=== PATIENT | female | born 1965 | race Caucasian/White ===

== ENCOUNTER → 2017-01-17 | Outpatient (CLI) | payer MEDICAID | LOC: CIMAGING 14:27 | DX: Z12.31 Encounter for screening mammogram for malignant neoplasm of breast (principal) | CPT/HCPCS: G0202 ==

== ENCOUNTER → 2017-02-04 | Outpatient (CLI) | payer MEDICAID | LOC: CIMAGING 13:10 | PROVIDERS: ATTEND Family Medicine | DX: Z12.39 Encounter for other screening for malignant neoplasm of breast (principal); R92.8 Other abnormal and inconclusive findings on diagnostic imaging of breast | CPT/HCPCS: G0206 ==

== ENCOUNTER → 2017-05-29 | Outpatient (CLI) | payer MEDICAID | LOC: CIMAGING 12:53 | PROVIDERS: ATTEND Family Medicine | DX: I51.7 Cardiomegaly (principal); R91.8 Other nonspecific abnormal finding of lung field | CPT/HCPCS: 71020-PO ==

== ENCOUNTER 2018-06-30 08:21 | Observation (INO) | payer SELFPAY ==
[2018-06-30] MEDS ORDERED: IPRATROPIUM/ALBUTEROL 3 ML DEYVIAL IH ONE (08:46)
[2018-06-30] MEDS ORDERED: NS 1,000 ML IV ONE (08:48)
--- NOTE | 2018-06-30 08:54 | EDPHY ---
H & P Stated Complaint: URI, low back pain and incontinence x 3 weeks Time Seen by Provider: 06/30/18 08:51 HPI/ROS: CHIEF COMPLAINT: Called, left flank pain and incontinent HISTORY OF PRESENT ILLNESS: The patient is a 52-year-old obese female who comes to the emergency department complaining of an upper respiratory tract infection for the last 3 weeks as well as pain in her left flank and stress incontinence. No weakness in her legs. No numbness. No middle low back pain. She denies injuries. She states that she got a cold from her daughter's boyfriend. She has been coughing and felt short of breath. Here at triage she is hypoxic. She also complains that around the same time she started having an ache in her left CVA region that she assumed was a pulled muscle from doing laundry. She states that she has had that before and usually gets better with heat packs but this is not. She also has been complaining of stress incontinence with coughing or sitting or rolling over. She states that this began around the same time 3 weeks ago but has happened before when she has had colds. She has had a subjective fever at home. No GI symptoms. She has not had any dysuria. She denies history of asthma or COPD but states that she does have wheezing with colds. Severity: Moderate Modifying factors: None REVIEW OF SYSTEMS: Constitutional: See HPI EENTM: denies: blurred vision, double vision, nose congestion Respiratory: See HPI Cardiac: denies: chest pain, irregular heart rate, lightheadedness, palpitations Gastrointestinal/Abdominal: denies: abdominal pain, diarrhea, nausea, vomiting, blood streaked stools Genitourinary: See HPI Musculoskeletal: denies: joint pain, muscle pain Skin: denies: lesions, rash, jaundice, bruising Neurological: denies: headache, numbness, paresthesia, tingling, dizziness, weakness Hematologic/Lymphatic: denies: blood clots, easy bleeding, easy bruising Immunologic/allergic: denies: HIV/AIDS, transplant 10 systems reviewed and negative except as noted EXAM: GENERAL: Well-appearing, well-nourished and in no acute distress. HEAD: Atraumatic, normocephalic. EYES: Pupils equal round and reactive to light, extraocular movements intact, sclera anicteric, conjunctiva are normal. ENT: TMs normal, nares patent, oropharynx clear without exudates. Moist mucous membranes. NECK: Normal range of motion, supple without lymphadenopathy or JVD. LUNGS: Mild diffuse wheezing HEART: Regular rate and rhythm without murmurs, rubs or gallops. ABDOMEN: Soft, nontender, normoactive bowel sounds. No guarding, no rebound. No masses appreciated. BACK: Mild left CVA tenderness, no spinal tenderness, step-offs or deformities EXTREMITIES: Normal range of motion, 1+ pitting edema. No clubbing or cyanosis. NEUROLOGICAL: Cranial nerves II through XII grossly intact. Normal speech, normal gait. 5/5 strength, normal movement in all extremities, normal sensation , normal reflexes PSYCH: Normal mood, normal affect. SKIN: Warm, dry, normal turgor, no visible rashes or lesions. Source: Patient Exam Limitations: No limitations - Personal History Current Tetanus Diphtheria and Acellular Pertussis (TDAP): Yes - Medical/Surgical History Hx Asthma: No Hx Chronic Respiratory Disease: No Hx Diabetes: No Hx Cardiac Disease: No Hx Renal Disease: No Hx Cirrhosis: No Hx Alcoholism: No Hx HIV/AIDS: No Hx Splenectomy or Spleen Trauma: No Other PMH: High cholesterol. RA. osteoporosis in knees, carpal tunnel bilat. kidney stones - Family History Significant Family History: No pertinent family hx - Social History Smoking Status: Former smoker Alcohol Use: Sober Drug Use: None Constitutional: Initial Vital Signs Temperature (C) 36.6 C 06/30/18 08:24 Heart Rate 97 06/30/18 08:24 Respiratory Rate 22 H 06/30/18 08:24 Blood Pressure 179/81 H 06/30/18 08:24 O2 Sat (%) 80 L 06/30/18 08:24 O2 Delivery Mode Nasal Cannula O2 (L/minute) 3 Allergies/Adverse Reactions: No Known Allergies Allergy (Verified 06/30/18 08:24) Home Medications: Medication Instructions Recorded Oxybutynin 11/02/13 Oxycodone HCl/Acetaminophen 1 - 2 tab PO Q6 PRN #15 tablet 11/02/13 [Oxycodone-Acetaminophen 5-325] traZODONE 11/02/13 Medical Decision Making - Diagnostics EKG Interpretation: An EKG obtained and was read and documented in trace view. Please see trace view for full reading and report. Sinus rhythm, no acute ischemic changes. Imaging Results: Imaging Impressions Chest X-Ray 06/30/18 08:46 Impression: Probable mild CHF/pulmonary edema, minimally increased since May 29. Abdomen/Pelvis Ultrasound 06/30/18 08:49 Impression: 1. No hydronephrosis. 2. Bladder is empty. 3. Cholelithiasis with borderline gallbladder wall thickening, which may represent cholecystitis. Please correlate with laboratory values and consider ultrasound abdomen if clinically indicated. Findings and recommendations discussed with Emergency Department physician, Dr. Beny Parra at 0931 hours on June 30, 2018. Final report concurs with initial preliminary interpretation. Imaging: Discussed imaging studies w/ presto log operator Radiologist ED Course/Re-evaluation: 10:55 a.m. I return to the patient's room multiple times for re-examination. She is difficult to pin down. Her renal ultrasound and urinalysis are unremarkable. I do not have a good explanation for left flank pain. Her chest x-rays consistent with pulmonary edema. She denies any history of CHF or cardiac disease. Her BNP is not very elevated and her troponin and EKG are normal. She does report some orthopnea. Much of her symptomatology is consistent with pneumonia. She says she had a fever at home and has been coughing and is hypoxic. She however on x-ray appears more to be consistent with pulmonary edema, she has a normal white count and lactate and is afebrile here. At this point I spoke with the hospitalist service and will admit for hypoxia and pulmonary edema. I will treat with Lasix for now and will continue the workup inpatient basis. 11:55 a.m. the patient's has arrived. They are refusing EMS transport because of cost concerns. We have not yet given the patient Lasix and will hold this until after her transport. Will give them an oxygen bottle to take with them. Differential Diagnosis: Partial list of the Differential diagnosis considered include but were not limited to; bronchitis, pneumonia, pulmonary edema, CHF, urinary tract infection, muscle strain kidney stone and although unlikely based on the history and physical exam, I also considered aneurysm, dissection, diverticulitis. - Data Points Laboratory Results: Laboratory Results 06/30/18 08:50 06/30/18 08:50 06/30/18 06/30/18 06/30/18 09:52 09:08 08:50 WBC RBC Hgb Hct MCV MCH MCHC RDW Plt Count MPV Neut % (Auto) Lymph % (Auto) [place] % (Auto) Eos % (Auto) Baso % (Auto) Nucleat RBC Rel Count Absolute Neuts (auto) Absolute Lymphs (auto) Absolute Monos (auto) Absolute Eos (auto) Absolute Basos (auto) Absolute Nucleated RBC Immature Gran % Immature Gran # PT INR APTT Sodium 140 mEq/L mEq/L (135-145) Potassium 4.0 mEq/L mEq/L (3.3-5.0) Chloride 101 mEq/L mEq/L (97-110) Carbon Dioxide 29 mEq/l mEq/l (22-31) Anion Gap 10 mEq/L mEq/L (6-14) BUN 11 mg/dL mg/dL (7-23) Creatinine 0.6 mg/dL mg/dL (0.6-1.0) Estimated GFR > 60 Glucose 109 mg/dL H mg/dL (70-100) POC Lactic Acid Wilber 1.2 mmol/L mmol/L (0.7-2.1) Calcium 8.7 mg/dL mg/dL (8.5-10.4) Total Bilirubin 0.7 mg/dL mg/dL (0.1-1.4) POC Troponin I 0.00 ng/mL ng/mL (0.00-0.08) NT-Pro-B Natriuret Pep 405 pg/mL H pg/mL (0-125) Urine Color Urine Appearance Urine pH Ur Specific Falcon Urine Protein Urine Ketones Urine Blood Urine Nitrate Urine Bilirubin Urine Urobilinogen Ur Leukocyte Esterase Urine RBC Urine WBC Ur Epithelial Cells Urine Mucus Urine Glucose 06/30/18 06/30/18 06/30/18 08:50 08:50 08:45 WBC 9.80 10^3/uL H 10^3/uL (3.80-9.50) RBC 5.00 10^6/uL 10^6/uL (4.18-5.33) Hgb 14.9 g/dL g/dL (12.6-16.3) Hct 46.2 % % (38.0-47.0) MCV 92.4 fL fL (81.5-99.8) MCH 29.8 pg pg (27.9-34.1) MCHC 32.3 g/dL L g/dL (32.4-36.7) RDW 15.8 % H % (11.5-15.2) Plt Count 99 10^3/uL L 10^3/uL (150-400) MPV 11.4 fL fL (8.7-11.7) Neut % (Auto) 77.6 % H % (39.3-74.2) Lymph % (Auto) 14.4 % L % (15.0-45.0) [place] % (Auto) 5.4 % % (4.5-13.0) Eos % (Auto) 1.4 % % (0.6-7.6) Baso % (Auto) 0.5 % % (0.3-1.7) Nucleat RBC Rel Count 0.0 % % (0.0-0.2) Absolute Neuts (auto) 7.60 10^3/uL H 10^3/uL (1.70-6.50) Absolute Lymphs (auto) 1.41 10^3/uL 10^3/uL (1.00-3.00) Absolute Monos (auto) 0.53 10^3/uL 10^3/uL (0.30-0.80) Absolute Eos (auto) 0.14 10^3/uL 10^3/uL (0.03-0.40) Absolute Basos (auto) 0.05 10^3/uL 10^3/uL (0.02-0.10) Absolute Nucleated RBC 0.00 10^3/uL 10^3/uL (0-0.01) Immature Gran % 0.7 % % (0.0-1.1) Immature Gran # 0.07 10^3/uL 10^3/uL (0.00-0.10) PT 14.0 SEC SEC (12.0-15.0) INR 1.06 (0.83-1.16) APTT 29.8 SEC SEC (23.0-38.0) Sodium Potassium Chloride Carbon Dioxide Anion Gap BUN Creatinine Estimated GFR Glucose POC Lactic Acid Wilber Calcium Total Bilirubin POC Troponin I NT-Pro-B Natriuret Pep Urine Color YELLOW Urine Appearance CLEAR Urine pH 6.0 (5.0-7.5) Ur Specific Falcon 1.017 (1.002-1.030) Urine Protein 1+ H (NEGATIVE) Urine Ketones NEGATIVE (NEGATIVE) Urine Blood NEGATIVE (NEGATIVE) Urine Nitrate NEGATIVE (NEGATIVE) Urine Bilirubin NEGATIVE (NEGATIVE) Urine Urobilinogen 2.0 EU H EU (0.2-1.0) Ur Leukocyte Esterase NEGATIVE (NEGATIVE) Urine RBC 1-3 /hpf /hpf (0-3) Urine WBC 1-3 /hpf /hpf (0-3) Ur Epithelial Cells TRACE /lpf /lpf (NONE-1+) Urine Mucus TRACE /lpf /lpf (NONE-1+) Urine Glucose NEGATIVE (NEGATIVE) Microbiology Results: MICROBIOLOGY 06/30/18 08:50 Nasal, Sinus - Swab Respiratory Panel (PCR) - Final No Organism Detected Medications Given: Discontinued Medications Albuterol/Ipratropium (Duoneb) 3 ml IH EDNOW ONE Stop: 06/30/18 08:47 Last Admin: 06/30/18 09:08 Dose: 3 ml Sodium Chloride (Ns) 1,000 mls @ 0 mls/hr IV EDNOW ONE; Wide Open PRN Reason: Protocol Stop: 06/30/18 08:49 Last Admin: 06/30/18 09:08 Dose: 1,000 mls Point of Care Test Results: Chemistry 06/30/18 09:52 POC Troponin I 0.00 ng/mL ng/mL (0.00-0.08) Blood Gas/Lactic Acid-Venous 06/30/18 09:08 POC Lactic Acid Wilber 1.2 mmol/L mmol/L (0.7-2.1) Urine Dip Collection Date 06/30/18 Collection Time 08:30 Specific Falcon (1.002-1.030) 1.015 PH (5.0-7.5) 6.5 Leukocytes (Negative) Negative Nitrites (Negative) Negative Protein (Negative) 1+ Glucose (Negative) Negative Ketones (Negative) Negative Urobilnogen (0.2-1.0 EU) 1.0 Bilirubin (Negative) Negative Blood (Negative) Negative Departure - Departure Disposition: [facility] Acute Clinical Impression: Hypoxia Pulmonary edema Qualifiers: Chronicity: acute Qualified Code(s): J81.0 - Acute pulmonary edema Condition: Fair
--- NOTE | 2018-06-30 09:03 | CPEKG ---
Test Reason : OPEN Blood Pressure : / mmHG Vent. Rate : 076 BPM Atrial Rate : 075 BPM P-R Int : 174 ms QRS Dur : 096 ms QT Int : 395 ms P-R-T Axes : 084 114 039 degrees QTc Int : 445 ms Sinus rhythm Low voltage with right axis deviation Probable anterolateral infarct, old Confirmed by Beny Parra ([id number]) on 06/30/2018 9:02:39 AM Referred By: Confirmed By:Beny Parra
[2018-06-30 09:59] LABS: INR 1.06 (0.83-1.16)
[2018-06-30 10:25] LABS: PLATELET COUNT 99 10^3/uL (150-400)
[2018-06-30] MEDS ORDERED: ONDANSETRON DISINTEGRATING 4 MG TAB PO PRN (11:16)
[2018-06-30] MEDS ORDERED: ACETAMINOPHEN 325 MG TAB PO PRN (11:16)
[2018-06-30] MEDS ORDERED: ONDANSETRON 4 MG/2 ML VIAL IVP PRN (11:16)
[2018-06-30] MEDS ORDERED: GUAIFENESIN/DM 10 ML UDCUP PO PRN (14:04)
[2018-06-30] MEDS ORDERED: HYDROCODONE/APAP 10/325 TAB PO PRN (14:17)
[2018-06-30] MEDS: predniSONE 20 MG TAB PO SCH (14:20)
--- NOTE | 2018-06-30 14:41 | GHP ---
DATE OF ADMISSION: 06/30/2018 CHIEF COMPLAINT: Shortness of breath, cough. HISTORY OF PRESENT ILLNESS: A 52-year-old female with rheumatoid arthritis, hypertension, hyperlipidemia, and obesity, presenting with persistent shortness of breath and cough. Reports URI symptoms 3 weeks ago, including a productive cough with yellow sputum, stuffy nose. Her daughter's boyfriend was sick with a cold at that time. States symptoms never really have improved as she is still coughing. Sputum is now clear. Reports subjective fevers and sweats. Has had left flank pain over this time. She thinks she pulled a muscle, it is worse when she coughs or moves. Denies right upper quadrant pain. No dysuria. Endorses PND and swelling of the feet over the last couple of weeks. She does snore per her . She has become more incontinent of urine with coughing. Denies chest pain. REVIEW OF SYSTEMS: I completed a 10-point review of systems, negative, except as noted in HPI. PAST MEDICAL HISTORY: Rheumatoid arthritis followed at [facility], OA, hypertension, hyperlipidemia. PAST SURGICAL HISTORY: . FAMILY HISTORY: Mother with diabetes. SOCIAL HISTORY: Lives with her and kids in [place]. No recent travel. No cigarettes. Occasional alcohol. ALLERGIES: No known drug allergies. HOME MEDICATIONS: 1. Trazodone. 2. Percocet 1-2 tabs q.6 hours p.r.n. 3. Oxybutynin. PHYSICAL EXAMINATION: VITAL SIGNS: Temperature is 36.6 blood pressure 179/89, heart rate is in the 90s respiration 20 18-22, 80% on room air 96 on 3 L. GENERAL: She is obese female, mildly uncomfortable, coughing. HEENT: Moist mucous membranes. CV: Distant heart sounds. Regular. +1 ankle edema bilaterally. LUNGS: Some diminished no crackles or wheezing, increased WOB. GI: Obese, soft, nontender, nondistended. No rebound or guarding. : No [place]. No suprapubic CVA tenderness. NEURO: 2 through 12 intact. PSYCH: Alert and oriented x3. LABORATORY DATA: Sodium 140, potassium 4.0, chloride 101, carbon dioxide 29, creatinine 0.6 glucose 109, lactate is 1.2, calcium 8.7. LFTs are pending. Procalcitonin pending. BNP is 405. Troponin 0.00. Coags within normal. UA with +1 protein. WBC 9, hemoglobin 14, hematocrit 46, platelets 99. ASSESSMENT/PLAN: 1. Acute hypoxic respiratory failure: This signified by 80% on room air. RR 28 and increase WOB. Differential, includes viral infection, postviral pneumonia, cardiac. EKG and troponin are negative for ischemia, repeating both. X-ray with minimal edema. No significant opacity. She may have a component of reactive airways disease after a viral infection. Will get prednisone, DuoNeb, and cough suppressant. Wound check an echocardiogram for concern of obstructive sleep apnea, and right heart failure. 2. Hypertension: She is not on medications as an outpatient. Will monitor here. May need to start antihypertensive. 3. Hyperlipidemia: She is not on a statin. 4. Rheumatoid arthritis: Pulmonary associated with this is interstitial lung disease, but appears these symptoms are acute in the setting of a recent infection. If not improved, can do CT of the chest. 5. Thrombocytopenia: This is new since October, platelets were 213. Coags within normal. I am checking LFTs. Will check abdominal ultrasound to evaluate spleen. 6. Left flank pain: UA is negative. Suspect this is muscle strain with cough. There is evidence of stones on her ultrasound, but no right-sided pain. 7. Obesity: Counseled on diet and exercise. 8. Deep venous thrombosis prophylaxis: Lovenox. 9. Diet: Regular. DISPOSITION: Observation admission given acute shortness of breath warranting echocardiogram, symptom management. /[id number]/MODL MTDD
--- NOTE | 2018-06-30 16:10 | ASMTCMCOM ---
CM Note CM Note Notes: Pt has been admitted with L flank pain, incontinence x3 weeks, and upper respiratory infection. They are concerned about finances and state pt recently lost her Medicaid. Talked with pt and apparently her daughter recently got a part time receptionist job and between her job and the pt's 's job, they are now over income. Gave the pt Financial Counseling's info and encouraged her to have her contact them. CM will follow for any d/c needs. Date Signed: 06/30/2018 04:09 PM Electronically Signed By:ENEIDA Burgess
[2018-06-30] MEDS: OXYBUTYNIN CHLORIDE 5 MG TAB PO SCH ×2 (16:21→22:49)
[2018-06-30] MEDS: BENZONATATE 100 MG CAP PO PRN ×2 (16:21→22:48)
[2018-06-30] MEDS: IPRATROPIUM/ALBUTEROL 3 ML DEYVIAL IH PRN (16:26)
--- NOTE | 2018-06-30 16:36 | ECHO ---
[email or web address] [address] [address] Main: [phone] Fax: Transthoracic Echocardiogram Name: DELISA CUMMINS MR#: [id number] Study Date: 06/30/2018 Study Time: 02:50 PM Date of : 1965 Age: 52 year(s) Height: 152.4 cm (60 in.) Weight: 117.94 kg (260 lb.) BSA: 2.09 m2 Gender: Female Examination: Echo Indication: pnd, edema, suspect sascha, eval vhd, pulm htn Image Quality: Technically Difficult Contrast: Requested by: Katelynn Celis BP: 121 mmHg/56 mmHg Heart Rate: Rhythm: Indication: pnd, edema, suspect sascha, eval vhd, pulm htn Procedure Staff Early Intervention Specialist: Katelynn Jordan RDCS Reading Physician: Colt Patterson MD Requesting Provider: Conclusions: Mild concentric LV hypertrophy. Normal global systolic LV function. EF is 58 %. Trivial mitral valve regurgitation. Technically difficult imaging due to patient body habitus. . Measurements: Chambers Valvular Assessment AV/MV Valvular Assessment TV/PV Normal Normal Normal Name Value Range Name Value Range Name Value Range Ao Maritza (2D): 2.5 cm (1.4 cm-2.6 AV Vmax: 1.69 m/s (1 m/s-1.7 PV Vmax: 0.98 m/s (0.6 m/s-0.9 cm) m/s) m/s) IVSd (2D): 1.3 cm (0.6 cm-1.1 AV maxP mmHg ( - ) PV PGmax: 4 mmHg ( - ) cm) AV meanP mmHg ( - ) LVDd (2D): 5.0 cm (3.9 cm-5.3 DAVE (VTI): 1.2 cm ( - ) cm) MV E Vmax: 1.00 m/s ( - ) LVDs (2D): 3.5 cm (2.1 cm-4 MV A Vmax: 0.65 m/s ( - ) cm) MV E/A: 1.54 ( - ) LVPWd (2D): 1.3 cm ( - ) MV PHT: 0.066 s ( - ) LVOTd 1.9 cm 1.9 cm mm MVA (PHT): 3.3 s ( - ) LVEF (2D): 58 (>=54 %) RVDd(2D): 2.7 cm (1.9 cm-3.8 cmmm) Continued Measurements: Chambers Valvular Assessment AV/MV Name Value Name Value LADs: 3.7 cm MV DecTime: 211 m/s LADs Lon.4 cm MV E' Septal: 0.09 m/s Patient: DELISA CUMMINS Study Date: 06/30/2018 Page 1 of 2 02:50 PM LA Area: 19.2 cm2 MV E/E' Septal: 11.40 LA Volume: 56 ml MV E/E' Lateral: 8.70 LA Volume Index: 26.8 ml/m2 Additional Vessels Name Value Ao Ascendin.8 cm Inferior Vena Cava: 2.0 cm Findings: Left Ventricle: Normal size left ventricle. Mild concentric LV hypertrophy. Normal global systolic LV function. EF is 58 %. No regional wall motion abnormality. Normal diastolic LV function. Right Ventricle: Normal size right ventricle. Normal RV function. Left Atrium: The left atrium is normal in size. Right Atrium: The right atrium is normal in size. Mitral Valve: The mitral valve is normal in appearance and function. Trivial mitral valve regurgitation. No mitral stenosis is present. Aortic Valve: The aortic valve is tri-leaflet. There is no significant aortic valve regurgitation. No aortic valve stenosis is present. Tricuspid Valve: The tricuspid valve is normal in appearance and function. Pulmonic Valve: The pulmonic valve is normal in appearance and function. Aorta: The aorta is normal. Normal size aortic root measuring 2.5 cm. Normal size ascending aorta measuring 2.8 cm. IVC: The IVC is normal sized. Pericardium: No pericardial effusion. No pleural effusion. Exam Comments: Technically difficult imaging due to patient body habitus. . (No Signature Object) Patient: DELISA CUMMINS Study Date: 06/30/2018 Page 2 of 2 02:50 PM [id number]
[2018-06-30] MEDS: traZODone 100 MG TAB PO SCH (22:49)
[2018-07-01 06:41] LABS: PLATELET COUNT 179 10^3/uL (150-400)
[2018-07-01] MEDS: BENZONATATE 100 MG CAP PO PRN (07:28)
[2018-07-01] MEDS: OXYBUTYNIN CHLORIDE 5 MG TAB PO SCH ×4 (07:28→21:19)
[2018-07-01] MEDS: IPRATROPIUM/ALBUTEROL 3 ML DEYVIAL IH PRN ×3 (07:50→21:39)
[2018-07-01] MEDS: predniSONE 20 MG TAB PO SCH (10:20)
[2018-07-01] MEDS: ENOXAPARIN 60 MG/0.6 ML SYR SC SCH ×2 (10:21→21:20)
--- NOTE | 2018-07-01 13:18 | HOSPPROG ---
Hospitalist Progress Note Assessment/Plan: #Acute hypoxic resp failure: due to RAD after URI. Today she reports h/o asthma and has nebs at home -Trops neg x 2. No e/o PNA, negative PCR. Echo WNL #Acute asthma exacerbation: improved. Cont pred, nebs, add Azithro #Obesity: counseled on diet and exercise #HTN #RA: home meds #Thrombocytopenia: resolved, may have been spurious lab Inpatient admission: hypoxic, requiring nebs, steroids Subjective: "can breath today" still coughing Objective: Vital Signs Temp Pulse Resp BP Pulse Ox 36.9 C 82 28 H 132/78 H 94 07/01/18 12:26 07/01/18 12:26 07/01/18 12:26 07/01/18 12:26 07/01/18 12:26 Laboratory Results 07/01/18 06:07 06/30/18 07/01/18 07/02/18 05:59 05:59 05:59 Intake Total 1100 Balance 1100 PT 14.0 SEC (12.0-15.0) 06/30/18 08:50 INR 1.06 (0.83-1.16) 06/30/18 08:50 - Time Spent With Patient Time Spent with Patient: greater than 35 minutes Time Spent with Patient: Greater than 35 minutes spent on this patients care, greater than 50% of time spent counseling, educating, and coordinating care regarding the above mentioned plan. - Physical Exam Constitutional: obese Eyes: PERRL Ears, Nose, Mouth, Throat: moist mucous membranes Cardiovascular: regular rate and rhythym, No edema Respiratory: reduced air movement, expiratory wheeze, rhonchi Gastrointestinal: normoactive bowel sounds, soft, non-tender abdomen Genitourinary: no bladder fullness, No crum in urethra Skin: warm Musculoskeletal: full muscle strength Neurologic: AAOx3, CN II-XII Intact Psychiatric: interacting appropriately ICD10 Worksheet Patient Problems: Problems Problem Status Onset Hypoxia Acute Pulmonary edema Acute
[2018-07-01] MEDS ORDERED: AZITHROMYCIN 250 MG TAB PO ONE (16:00)
[2018-07-01] MEDS ORDERED: PNEUMOCOCCAL 0.5ML VACCINE VIAL IM ONE (21:02)
[2018-07-01] MEDS: traZODone 100 MG TAB PO SCH (21:20)
[2018-07-02] MEDS: OXYBUTYNIN CHLORIDE 5 MG TAB PO SCH ×3 (05:44→16:42)
[2018-07-02] MEDS ORDERED: AZITHROMYCIN 250 MG TAB PO SCH (09:00)
[2018-07-02] MEDS: predniSONE 20 MG TAB PO SCH (09:18)
[2018-07-02] MEDS: ENOXAPARIN 60 MG/0.6 ML SYR SC SCH (09:18)
--- NOTE | 2018-07-02 11:28 | PDHOMEO2F ---
Home Oxygen Face to Face Home Orders: I certify that a physician or a nurse practitioner or physician's training assistant has had a [id number] encounter with this patient on the date of this order due to the diagnosis listed, which relates to the primary reason the patient requires home oxygen. Alternative treatments have been tried, or considered, and deemed ineffective. It is anticipated that supplemental oxygen will result in improvement with treatment. Home oxygen qualifying diagnosis: Acute asthma exacerbation SpO2 on room air (%): 80 Frequency of home oxygen needed: continuous Home oxygen liters per minute: 2 Home oxygen delivery device: nasal cannula Concentrator: Yes E-tanks for mobility and back up: Yes If ordering portable O2, is the patient mobile in the home?: Yes I certify that, based on these findings, the home oxygen is medically necessary for this patient for the following length of time. Length of time home oxygen needed: 99 years
--- NOTE | 2018-07-02 12:17 | ASMTDCNOTE ---
Case Management Discharge Discharge Order Complete? Answers: Yes Patient to Obtain Answers: via Family Medications Transportation Arranged Answers: Family/Friends EMTALA Complete Answers: No Case Management Transport Answers: No Form Complete Faxed Final Orders Answers: No Agency/Facility Transfer Answers: No Report Printed & Faxed to Receiving Agency Family Notified Answers: Yes Discharge Comments Notes: Pts case discussed w/ SISI Alex and Dr. Celis regarding d/c POC. Pt is being discharged today. Pt paid for her own meds. Pt is being followed by [facility]. Ree came up to speak to pt. Pt will need to send her pay stubs to Ree. CM made pt an appointment w/ [facility] in [place]. Pt will need to follow up for additional meds. Pt may or may not need o2. Pt is self pay at this time. CM available for changes. Plan: Independent Date Signed: 07/02/2018 12:16 PM Electronically Signed By:BIRGIT Leon
--- NOTE | 2018-07-02 12:18 | ASMTLACE ---
LACE Length of stay for Answers: 2 days current admission Acuity / Level of Answers: No Care: Did the patient have an inpatient admission? Comorbidities - select Answers: Other Notes: Kidney stones all that apply # of Emergency department Answers: 1-2 visits in the last 6 months Score: 4 Date Signed: 07/02/2018 12:17 PM Electronically Signed By:BIRGIT Leon
[2018-07-02 12:38] VITALS: BP 140/73
--- NOTE | 2018-07-02 12:51 | GDS ---
DISCHARGE DIAGNOSES: 1. Acute asthma exacerbation. 2. Recent upper respiratory infection. 3. Obesity. 4. Acute hypoxic respiratory failure. 5. Hypertension. 6. Rheumatoid arthritis. 7. Thrombocytopenia. 8. Choledocholithiasis. HISTORY OF PRESENT ILLNESS: A 52-year-old female with RA, asthma, suffered from a URI 3 weeks ago, including productive cough with yellow sputum, stuffy nose. Her daughter's boyfriend had been sick with a cold. States symptoms never really improved, and she is still coughing some clear sputum. She reports subjective fevers and sweats. She also had left flank pain. Has had left flank pain, which she attributes to a pulled muscle. No right upper quadrant pain. No dysuria. HOSPITAL COURSE BY PROBLEM: 1. Acute hypoxic respiratory failure: evidenced by 80% on RA, RR 28. From acute asthma exacerbation with recent URI. Troponins were negative x2 and EKG nonischemic. Echocardiogram with normal EF and RV function. Symptoms have improved on prednisone, DuoNeb, and azithromycin. Discharge on pred burst and azithromycin. 2. Acute asthma exacerbation: plan stated above.Negative respiratory culture, no pneumonia, negative procalcitonin. 3. Obesity: counseled on diet and exercise. 4. Hypertension: not on medications as an outpatient. 5. Hyperlipidemia: not on a statin. 6. Rheumatoid arthritis: She should follow up with her PCP. 7. Thrombocytopenia: Her platelets were 99 on admission, but this normalized on second check and was likely spurious. She had normal LFTs and no splenomegaly on ultrasound. DISPOSITION: Patient is stable for discharge home. Plan for FU at [facility] NEW MEDICATIONS: Azithromycin and prednisone. FOLLOWUP: Primary care physician. Medicaid is pending. PHYSICAL EXAMINATION: VITAL SIGNS: Today, temperature 36.9, blood pressure 102 /57, heart rate in the 60s, respirations 16, 80% on room air, 95% on 1 L. GENERAL: She is obese. No acute distress. HEENT: PERRLA. Moist mucous membranes. CV: Regular rate and rhythm. LUNGS: Improved air movement, still diminished. Mild expiratory wheezing. ABDOMEN: Obese, soft, nontender, nondistended. Positive bowel sounds. : No [place]. MUSCULOSKELETAL: 5/5 upper and lower extremity strength. NEURO: 2 through 12 intact. PSYCH: Alert and oriented x3. Time spent on discharge: Greater than 30 minutes at bedside, counseling patient on medications and followup. /[id number]/MODL MTDD
--- NOTE | 2018-07-02 13:43 | ASMTCMCOM ---
CM Note CM Note Notes: Pts discharge is being postponed. Pt is requiring to d/c with o2 but pt cannot afford it since she doesn't have insurance. Date Signed: 07/02/2018 01:43 PM Electronically Signed By:BIRGIT Leon
--- NOTE | 2018-07-02 13:44 | HOSPPROG ---
Hospitalist Progress Note Assessment/Plan: #Acute hypoxic resp failure: due to RAD after URI. Today she reports h/o asthma and has nebs at home -Trops neg x 2. No e/o PNA, negative PCR. Echo WNL had planned on discharge home today, but cannot afford o2 #Acute asthma exacerbation: improved. Cont pred, nebs, add Azithro #Obesity: counseled on diet and exercise #HTN #RA: home meds #Thrombocytopenia: resolved, may have been spurious lab Inpatient admission: hypoxic, requiring nebs, steroids. Patient cannot afford oxygen and is at risk for harm if not discharged on it. Will monitor overnight Subjective: breathing improved Objective: Vital Signs Temp Pulse Resp BP Pulse Ox 36.8 C 80 18 140/73 H 91 L 07/02/18 12:00 07/02/18 12:00 07/02/18 12:00 07/02/18 12:00 07/02/18 12:00 Laboratory Results 07/01/18 06:07 07/01/18 07/02/18 07/03/18 05:59 05:59 05:59 Intake Total 1100 2800 Balance 1100 2800 PT 14.0 SEC (12.0-15.0) 06/30/18 08:50 INR 1.06 (0.83-1.16) 06/30/18 08:50 - Physical Exam Constitutional: obese Eyes: PERRL Ears, Nose, Mouth, Throat: moist mucous membranes Cardiovascular: regular rate and rhythym Respiratory: reduced air movement, expiratory wheeze Gastrointestinal: normoactive bowel sounds Genitourinary: no bladder fullness Skin: warm Musculoskeletal: full muscle strength Neurologic: AAOx3, CN II-XII Intact Psychiatric: interacting appropriately ICD10 Worksheet Patient Problems: Problems Problem Status Onset Hypoxia Acute Pulmonary edema Acute
[2018-07-02] MEDS: IPRATROPIUM/ALBUTEROL 3 ML DEYVIAL IH PRN (14:42)
--- NOTE | 2018-07-02 16:27 | ASMTCMCOM ---
CM Note CM Note Notes: Pt has spoken to pts fiance and she does not want to stay for another night. Pt has elected to self pay for the o2. Pt is being discharged today. Date Signed: 07/02/2018 04:25 PM Electronically Signed By:BIRGIT Leon
== END 2018-07-02 18:59 | disposition home or self-care (01) ==
LOC: CED 08:21 → CEDHOLD 10:55 → F2W 13:20
PROVIDERS: ADMIT Internal Medicine; ATTEND Internal Medicine
DX: J44.1 Chronic obstructive pulmonary disease with (acute) exacerbation (principal); J96.01 Acute respiratory failure with hypoxia; J06.9 Acute upper respiratory infection, unspecified; E66.9 Obesity, unspecified; I10 Essential (primary) hypertension; M06.9 Rheumatoid arthritis, unspecified; D69.6 Thrombocytopenia, unspecified; K80.50 Calculus of bile duct without cholangitis or cholecystitis without obstruction
CPT/HCPCS: 71046-PO; 76770-PO; 80076-PO; 83605-PO; 84484-PO; 97161-GP; G0008; G0009; G0378; J1650; J7512

== ENCOUNTER → 2018-10-06 | Outpatient (CLI) | payer MEDICAID | LOC: CIMAGING 14:39 | PROVIDERS: ATTEND Family Medicine | DX: Z12.31 Encounter for screening mammogram for malignant neoplasm of breast (principal) ==

== ENCOUNTER → 2018-11-04 | Outpatient (CLI) | payer MEDICAID | LOC: CIMAGING 12:18 | PROVIDERS: ATTEND Family Medicine | DX: I50.9 Heart failure, unspecified (principal) | CPT/HCPCS: 71046-PO ==

== ENCOUNTER 2018-11-05 20:31 | Emergency (ER) | payer MEDICAID ==
--- NOTE | 2018-11-05 21:23 | EDPHY ---
H & P Stated Complaint: SOB, sent by PCP d/t CHF Time Seen by Provider: 11/05/18 21:06 HPI/ROS: CHIEF COMPLAINT: Referred to ED by primary care for x-ray diagnosis of heart failure HISTORY OF PRESENT ILLNESS: The patient has had a several week history of cough. She is currently being treated for bronchitis. She had a chest x-ray performed as an outpatient yesterday and was notified to come to the ED today because the demonstrated heart failure. The patient reports typical symptoms of an upper respiratory infection including rhinorrhea, dry nonproductive cough and sore throat. The patient denies any chest pain currently. She has no history of congestive heart failure. The patient has been wearing oxygen. She is morbidly obese. REVIEW OF SYSTEMS: A comprehensive 10 point review of systems is otherwise negative aside from elements mentioned in the history of present illness. Source: Patient Exam Limitations: No limitations - Personal History Current Tetanus/Diphtheria Vaccine: Yes - Medical/Surgical History Hx Asthma: Yes Hx Chronic Respiratory Disease: Yes Hx Diabetes: No Hx Cardiac Disease: No Hx Renal Disease: No Hx Cirrhosis: No Hx Alcoholism: No Hx HIV/AIDS: No Hx Splenectomy or Spleen Trauma: No Other PMH: High cholesterol. RA. osteoporosis in knees, carpal tunnel bilat. kidney stones. CHF. asthama, COPD - Social History Smoking Status: Former smoker - Physical Exam Exam: General Appearance: Alert, no acute distress, obese female Eyes: Pupils equal and round no pallor or injection ENT, Mouth: Mucous membranes moist Respiratory: Rhonchorous breath sounds bilaterally Cardiovascular: Regular rate and rhythm Gastrointestinal: Abdomen is soft and nontender, no masses, bowel sounds normal Neurological: 5/5 strength noted all 4 extremities Skin: Warm and dry, no rashes Musculoskeletal: Neck is supple nontender Extremities: symmetrical, full range of motion Constitutional: Initial Vital Signs Temperature (C) 36.6 C 11/05/18 20:32 Heart Rate 82 11/05/18 20:32 Respiratory Rate 24 H 11/05/18 20:32 Blood Pressure 135/70 H 11/05/18 20:32 O2 Sat (%) 84 L 11/05/18 20:32 O2 Delivery Mode Room Air Allergies/Adverse Reactions: No Known Allergies Allergy (Verified 06/30/18 08:24) Home Medications: Medication Instructions Recorded Oxybutynin Chloride 5 mg PO QID 11/02/13 traZODone [traZODONE 100MG (*)] 100 mg PO HS 11/02/13 HYDROcodone/APAP [[place] 1 tab PO TID PRN 06/30/18 (*)] Azithromycin [Zithromax] 250 mg PO DAILY #3 tab 07/02/18 predniSONE 40 mg PO DAILY #4 tablet 07/02/18 Medical Decision Making - Diagnostics EKG Interpretation: EKG: Complete interpretation has been separately recorded in the [email or web address] archive. Summary impression: Sinus rhythm, left axis deviation, nonspecific ST T wave changes noted Imaging Results: Imaging Impressions Chest X-Ray 11/05/18 21:19 Impression: Borderline CHF unchanged. ED Course/Re-evaluation: The patient presents to the ED because of a chest x-ray which demonstrated heart failure. Patient has clinical evidence of a upper respiratory infection. The patient's EKG demonstrates no evidence of ischemia. Patient does have some chronic hypoxemia and is on home O2. The patient has no evidence of massive volume overload in the emergency department. The patient's troponin is normal. The patient's BNP is still pending at 11:00 p.m. However she is adamant about wanting to go home. She is comfortable following up with Cardiology as an outpatient. The patient will be discharged home with customary aftercare instructions and return precautions. The patient is noted to have a slightly elevated BNP of 500. She has no evidence of decompensated heart failure. She will be discharged home. Differential Diagnosis: Differential diagnosis considered includes asthma, bronchitis, pneumonia, congestive heart failure - Data Points Laboratory Results: Laboratory Results 11/05/18 20:51 11/05/18 20:51 11/05/18 11/05/18 11/05/18 21:53 20:51 20:51 WBC RBC Hgb Hct MCV MCH MCHC RDW Plt Count MPV Neut % (Auto) Lymph % (Auto) Davison % (Auto) Eos % (Auto) Baso % (Auto) Nucleat RBC Rel Count Absolute Neuts (auto) Absolute Lymphs (auto) Absolute Monos (auto) Absolute Eos (auto) Absolute Basos (auto) Absolute Nucleated RBC Immature Gran % Immature Gran # Sodium 135 mEq/L mEq/L (135-145) Potassium 4.4 mEq/L mEq/L (3.5-5.2) Chloride 102 mEq/L mEq/L (97-110) Carbon Dioxide 25 mEq/l mEq/l (22-31) Anion Gap 8 mEq/L mEq/L (6-14) BUN 18 mg/dL mg/dL (7-23) Creatinine 0.6 mg/dL mg/dL (0.6-1.0) Estimated GFR > 60 Glucose 93 mg/dL mg/dL (70-100) Calcium 8.7 mg/dL mg/dL (8.5-10.4) POC Troponin I 0.02 ng/mL ng/mL (0.00-0.08) Troponin I 0.024 ng/mL ng/mL (0.000-0.034) NT-Pro-B Natriuret Pep 511 pg/mL H pg/mL (0-125) 11/05/18 20:51 WBC 8.78 10^3/uL 10^3/uL (3.80-9.50) RBC 5.50 10^6/uL H 10^6/uL (4.18-5.33) Hgb 15.9 g/dL g/dL (12.6-16.3) Hct 51.4 % H % (38.0-47.0) MCV 93.5 fL fL (81.5-99.8) MCH 28.9 pg pg (27.9-34.1) MCHC 30.9 g/dL L g/dL (32.4-36.7) RDW 16.2 % H % (11.5-15.2) Plt Count 154 10^3/uL 10^3/uL (150-400) MPV 11.8 fL H fL (8.7-11.7) Neut % (Auto) 64.1 % % (39.3-74.2) Lymph % (Auto) 26.1 % % (15.0-45.0) Davison % (Auto) 6.8 % % (4.5-13.0) Eos % (Auto) 1.8 % % (0.6-7.6) Baso % (Auto) 0.6 % % (0.3-1.7) Nucleat RBC Rel Count 0.0 % % (0.0-0.2) Absolute Neuts (auto) 5.63 10^3/uL 10^3/uL (1.70-6.50) Absolute Lymphs (auto) 2.29 10^3/uL 10^3/uL (1.00-3.00) Absolute Monos (auto) 0.60 10^3/uL 10^3/uL (0.30-0.80) Absolute Eos (auto) 0.16 10^3/uL 10^3/uL (0.03-0.40) Absolute Basos (auto) 0.05 10^3/uL 10^3/uL (0.02-0.10) Absolute Nucleated RBC 0.00 10^3/uL 10^3/uL (0-0.01) Immature Gran % 0.6 % % (0.0-1.1) Immature Gran # 0.05 10^3/uL 10^3/uL (0.00-0.10) Sodium Potassium Chloride Carbon Dioxide Anion Gap BUN Creatinine Estimated GFR Glucose Calcium POC Troponin I Troponin I NT-Pro-B Natriuret Pep Point of Care Test Results: Chemistry 11/05/18 21:53 POC Troponin I 0.02 ng/mL ng/mL (0.00-0.08) Departure - Departure Disposition: Home, Routine, Self-Care Clinical Impression: Acute bronchitis, Dyspnea Condition: Good Instructions: Acute Bronchitis (ED) Additional Instructions: 1. Please return to the ED for markedly worsening symptoms. 2. Please contact the sheltered workshop executive director you have been referred to to schedule a follow-up appointment 3. Please return to the ED for any chest pain, fever, difficulty breathing or other concerns. Referrals: Haris Velásquez MD [Medical Doctor] - As per Instructions
[2018-11-05 21:24] LABS: PLATELET COUNT 154 10^3/uL (150-400)
--- NOTE | 2018-11-05 22:01 | CPEKG ---
Test Reason : OPEN Blood Pressure : / mmHG Vent. Rate : 068 BPM Atrial Rate : 067 BPM P-R Int : 173 ms QRS Dur : 096 ms QT Int : 415 ms P-R-T Axes : 079 122 049 degrees QTc Int : 442 ms Sinus rhythm Left posterior fascicular block Low voltage with right axis deviation Consider anterior infarct Confirmed by Seven Young ([id number]) on 11/05/2018 10:01:00 PM Referred By: Seven Young Confirmed By:Seven Young
[2018-11-05 23:04] VITALS: BP 116/64
== END 2018-11-05 23:05 | disposition home or self-care (01) ==
DX: J20.9 Acute bronchitis, unspecified (principal); J44.0 Chronic obstructive pulmonary disease with (acute) lower respiratory infection; I50.9 Heart failure, unspecified; R09.02 Hypoxemia; E78.00 Pure hypercholesterolemia, unspecified; E66.01 Morbid (severe) obesity due to excess calories; G56.03 Carpal tunnel syndrome, bilateral upper limbs; M17.0 Bilateral primary osteoarthritis of knee; Z87.891 Personal history of nicotine dependence
CPT/HCPCS: 84484-ER